=== PATIENT | female | born 1945 | race Caucasian/White ===

== ENCOUNTER 2017-04-05 04:00 | Emergency (ER) | payer MEDICARE ==
[2017-04-05 04:49] LABS: BASOPHIL 0.3 % (0-2); EOSINOPHIL 1.5 % (0-7); HCT 35.5 % (37.0-47.0); HGB 11.8 g/dl (12.5-16.0); LYMPHOCYTE 37.7 % (15-48); MCH 31.5 pg (25.0-31.0); MCHC 33.2 g/dL (32.0-36.0); MCV 94.7 fL (78.0-100.0); MONOCYTE 8.9 % (0-12); MPV 10.8 fL (6.0-9.5); NEUTROPHIL 51.6 % (41-80); PLT 191 K/uL (150-400); RBC 3.75 M/uL (4.20-5.40); RDW 12.7 % (11.5-14.0); WBC 7.9 K/uL (4.0-10.5)
[2017-04-05 04:59] LABS: INR 0.99 (0.9-1.2); PROTHROMBIN TIME 12.7 SECONDS (11.7-14.0)
[2017-04-05 05:00] LABS: D-DIMER 0.27 ug/mLFEU (0.00-0.41)
[2017-04-05 05:06] LABS: ALBUMIN 3.8 g/dL (3.4-4.8); BILIRUBIN - TOTAL 0.3 mg/dL (0.1-1.0); CREATININE 0.6 mg/dL (0.5-1.0); GLOBULIN (CALCULATION) 2.6 g/dL (2.2-4.2); MAGNESIUM 2.1 mg/dL (1.40-2.10); POTASSIUM 3.8 mmol/L (3.5-5.1); TOTAL PROTEIN 6.4 g/dL (6.4-8.3)
[2017-04-05 05:08] LABS: CKMB 1.78 ng/mL (0.97-4.94); MYOGLOBIN 28 ng/mL (26-65); PRO-BNP 61 pg/mL (0-125); TROPONIN T < 0.010 ng/mL
[2017-04-05 06:19] LABS: BILIRUBIN NEGATIVE (NEGATIVE); BLOOD NEGATIVE Ery/uL (NEGATIVE); CLARITY CLEAR (CLEAR); COLOR COLORLESS (YELLOW); GLUCOSE (U) NORMAL (NORMAL); KETONE (U) NEGATIVE (NEGATIVE); LEUKOCYTES NEGATIVE Leu/uL (NEGATIVE); NITRITE NEGATIVE (NEGATIVE); PROTEIN NEGATIVE (NEGATIVE); SPECIFIC GRAVITY <=1.005 (1.001-1.030); UROBILINOGEN 0.2 mg/dL (0.2-1.0); pH 6.5 (5.0-9.0)
== END 2017-04-05 09:23 | disposition home or self-care (01) ==
LOC: FER 04:00
PROVIDERS: Emergency Medicine
DX: K29.00 Acute gastritis without bleeding (principal); R06.02 Shortness of breath; E11.43 Type 2 diabetes mellitus with diabetic autonomic (poly)neuropathy; K31.84 Gastroparesis; I10 Essential (primary) hypertension; J45.909 Unspecified asthma, uncomplicated; G40.909 Epilepsy, unspecified, not intractable, without status epilepticus; E78.5 Hyperlipidemia, unspecified; Z88.5 Allergy status to narcotic agent; Z88.8 Allergy status to other drugs, medicaments and biological substances; Z79.52 Long term (current) use of systemic steroids; Z79.82 Long term (current) use of aspirin; Z79.51 Long term (current) use of inhaled steroids; Z79.899 Other long term (current) drug therapy
CPT/HCPCS: 36415; 71010; 80053; 81003; 82550; 82553; 83735; 83874; 83880; 84484; 85025; 85379; 85610; 85730; 93005; C9113; J1170

== ENCOUNTER 2020-10-31 05:05 | Inpatient (IN) | payer MEDICARE ==
[~2020-10-31 05:05] MED LIST: ABILIFY2 MG PO; ANASPAZ0.125 MG SL; ASPIRIN CHEWABL81 MG PO; CENTRUM COMPLE1 EACH PO; CITALOPRAM HBR40 MG PO; CLONAZEPAM0.5 M1 PO; FEROSUL325 MG PO; FLONASE ALLER15.8 ML; FOLIC ACID1 MG PO; METAMUCIL0.4 GM PO; OMEPRAZOLE40 MG PO; PREDNISONE5 MG PO; PROAIR HFA8.5 GM INH; RHEUMATREX2.5 MG PO; SYMBICORT 80-10.2 GM INH; SYNTHROID75 MCG PO; SYSTANE 0.3-0.415 ML OU; SYSTANE GEL EYE10 ML OU; VITAMIN D325 MC1 PO; VITAMIN D3250 MC1 PO; ZESTRIL5 MG PO; ZOCOR40 MG PO; ZOFRAN8 MG PO; ZYRTEC10 MG PO; domperidone PO
[2020-10-31] MEDS ORDERED: PERCOCET 5-3251 EACH PO (07:03)
--- NOTE | 2020-10-31 14:38 | NUR ---
PT LIVES AT HOME WITH DAUGHTER. S[facility] WILL BE DELIVERED DAY OF DC BY [facility].
[2020-11-01 06:24] LABS: BASOPHIL 0 % (0-2); EOSINOPHIL 0 % (0-7); HCT 32.1 % (37.0-47.0); HGB 10.3 g/dl (12.5-16.0); LYMPHOCYTE 9.4 % (15-48); MCH 33.1 pg (25.0-31.0); MCHC 32.1 g/dL (32.0-36.0); MCV 103.2 fL (78.0-100.0); MONOCYTE 8.3 % (0-12); MPV 9.9 fL (6.0-9.5); NEUTROPHIL 81.8 % (41-80); NRBC 0; PLT 183 K/uL (150-400); RBC 3.11 M/uL (4.20-5.40); RDW 12.7 % (11.5-14.0); WBC 10.2 K/uL (4.0-10.5)
[2020-11-01 06:44] LABS: BUN/CREAT RATIO (CALC) 15.1 RATIO; CREATININE 0.53 mg/dL (0.51-0.95); POTASSIUM 4.2 mmol/L (3.5-5.1)
[2020-11-01] MEDS ORDERED: ASPIRIN CHEWABL81 MG PO (10:27)
[2020-11-01] MEDS ORDERED: [UNRECOGNIZED DRUG - SUPPLY] (10:32)
== END 2020-11-01 12:56 | disposition home or self-care (01) | DRG 483 ==
LOC: FSDC 05:05 → FMS 07:44
PROVIDERS: ADMIT Orthopaedic Surgery
PROC: 0LS30ZZ Reposition Right Upper Arm Tendon, Open Approach (ICD-10-PCS; 2020-10-31)
PROC: 0RRJ00Z Replacement of Right Shoulder Joint with Reverse Ball and Socket Synthetic Substitute, Open Approach (ICD-10-PCS; principal; 2020-10-31 07:00)
DX: M19.011 Primary osteoarthritis, right shoulder (principal); K21.9 Gastro-esophageal reflux disease without esophagitis; E03.9 Hypothyroidism, unspecified; M79.7 Fibromyalgia; K58.9 Irritable bowel syndrome, unspecified; I10 Essential (primary) hypertension; E78.5 Hyperlipidemia, unspecified; Z20.828 Contact with and (suspected) exposure to other viral communicable diseases; Z88.8 Allergy status to other drugs, medicaments and biological substances
CPT/HCPCS: 36415; 73020; 80048; 85025; 86850; 86900; 86901; 94010; 94640; 94762; 97162; 97166; 97530-GP; 97535; C1713; C1776; J0171; J0697; J1100; J1885; J2250; J2370; J2405; J2704; J2710; J2795; J3010; J7120; U0002